=== PATIENT | female | born 1965 | race Caucasian/White ===

== ENCOUNTER 2017-09-16 06:04 | Day surgery (SDC) | payer BC ==
[~2017-09-16 06:04] MED LIST: Lactated Ringers 1,000 ML IV SCH
[2017-09-16] MEDS ORDERED: DIPRIVAN 200 MG/20 ML IV ONE (06:05)
[2017-09-16] MEDS ORDERED: Ketamine HCl 50 MG/ML IJ ONE (06:05)
[2017-09-16] MEDS ORDERED: Lactated Ringers 1,000 ML IV ONE (06:08)
[2017-09-16 07:55] VITALS: PULSE 78
[2017-09-16 08:13] VITALS: BP 119/82; O2SAT 100
--- NOTE | 2017-09-16 14:33 | OP ---
SURGERY DATE/TIME: 09/16/2017 0658 PREOPERATIVE DIAGNOSIS: Screening exam. POSTOPERATIVE DIAGNOSIS: Normal colon. PROCEDURE: Colonoscopy. SURGEON: Dr. Mccoy. ANESTHESIA: MAC. Medications given by anesthesia department. HISTORY: The patient is a 51 year-old white female presenting now for her first screening colonoscopy. She was appraised of the risks of the procedure including the risk of perforation, phlebitis, untoward reaction to medication, bleeding and missed lesions. The patient verbalized her understanding and desired to have the procedure performed. DESCRIPTION OF PROCEDURE: The patient was given the medications by the anesthesia department. She had continuous pulse oximetry, ECG monitoring, intermittent blood pressure monitoring and tidal CO2 monitoring during the examination. She was placed in the left lateral decubitus position. A digital rectal examination was performed and revealed normal anal sphincter tone and no masses. External hemorrhoids were present. The flexible Olympus pediatric colonoscope was used to intubate the rectum. A view of the colon was developed sequentially to the cecum. Upon insertion and withdrawal, including a retroflex view in the rectum, no mucosal lesions being encountered. The scope was removed from the patient who tolerated the procedure well and was sent back to OP recovery in good condition. The prep was noted to be fair to good.
== END 2017-09-16 08:24 | disposition home or self-care (01) ==
LOC: SDC 06:04
PROVIDERS: ATTEND Family Medicine
PROC: 0DJD8ZZ Inspection of Lower Intestinal Tract, Via Natural or Artificial Opening Endoscopic (ICD-10-PCS; principal; 2017-09-16)
DX: Z12.11 Encounter for screening for malignant neoplasm of colon (principal)
CPT/HCPCS: J2704

== ENCOUNTER 2019-12-18 19:01 | Emergency (ER) | payer BC ==
[2019-12-18] MEDS ORDERED: Sodium Chloride 0.9% 1000 ML 1,000 ML IV STA ×2 (19:21→19:36)
[2019-12-18 19:36] LABS: Absolute Neutrophil Ct (ANC) 4.48 (1.4-6.9); BASOPHIL % 0.5 % (0.0-0.4); Basophil (Absolute #) 0.04 (0-0.4); Eosinophil % 1.4 % (0.00-5.0); Hematocrit 39.1 % (35-47); Hemoglobin 12.8 gm/dl (12.0-16.0); Lymphocyte (Absolute #) 2.06 (1.0-4.6); Lymphocytes % 28.3 % (24.0-44.0); Mean Cell Volume 93.3 fl (78-100); Mean Corpuscular Hemoglobin 30.5 pg (26-32); Mean Corpuscular Hgb Concent. 32.7 g/dl (32-36); Mean Platelet Volume 10.6 fl (7.5-11.0); Monocyte (Absolute #) 0.61 (0.0-1.3); Monocytes % 8.4 % (0.0-12.0); Neutrophil % 61.4 % (36.0-66.0); Platelet Count 306 K/mm3 (150-450); Red Blood Count 4.19 M/mm3 (4.1-5.4); Red Cell Distribution Width 12.8 % (11.5-14.0); White Blood Count 7.3 K/mm3 (4.0-10.5)
[2019-12-18 19:43] LABS: INR 0.96 (0.8-3.0); PROTIME 10.8 SECONDS (9.95-12.35)
[2019-12-18 19:56] LABS: ALBUMIN 4.2 g/dL (3.5-5.0); ANION GAP 11.6 MEQ/L (5-15); BILIRUBIN,TOTAL 0.4 mg/dL (0.2-1.3); Calcium 9.3 mg/dL (8.4-10.2); Creatinine 1 1.08 mg/dL (0.52-1.04); MAGNESIUM 2.4 mg/dL (1.6-2.3); NT PRO BNP 95.9 pg/mL (0-900); Potassium 3.6 mmol/L (3.5-5.1); Total Protein 7.6 g/dL (6.3-8.2)
--- NOTE | 2019-12-18 20:21 | ERPHSYRPT ---
- History of Present Illness Time Seen by Provider: 12/18/19 19:20 Source: patient Exam Limitations: no limitations Patient Subjective Stated Complaint: syncople episode Triage Nursing Assessment: pt to ED c/o syncople episode at 1830 this evening. pt was hiking stairs, felt dizzy, sat down then passed out for apprx 15 seconds. pt then vomited when waking up. pt donated blood this afternoon 1300. A&Ox4. lung sounds clear and equal bilaterally, heart sounds clear. pt is diaphoretic and skin cool. pulses 2+. pt to room via WC and 1 assist to bed. pt feeling weak. Physician History: Patient is a 54-year-old female who approximately 1:00 this afternoon gave blood she then couple hours later went on a hike with her family apparently got quite warm and had a syncopal episode along with some nausea vomiting and brief loss of consciousness. On arrival she denies any pain she is feeling somewhat better upon arrival. Witnessed: by family Prior Episodes: single episode today, no prior history Timing/Duration: today Precipitating Factors: lightheadedness, nausea, other (Recent blood donation) Context: activity Loss of Consciousness: brief (seconds) Charcter of event(s): felt faint Allergies/Adverse Reactions: No Known Drug Allergies Allergy (Verified 12/18/19 19:20) Home Medications: No Reportable Medications [No Reported Medications] 09/11/17 [History] Hx Tetanus, Diphtheria Vaccination/Date Given: Yes Hx Influenza Vaccination/Date Given: Yes Hx Pneumococcal Vaccination/Date Given: No Travel Risk - International Travel Have you traveled outside of the country in past 3 weeks: No - Coronavirus Screening Close contact with a COVID-19 positive Pt in past 14-21 Days: No - Past Medical History Pertinent Past Medical History: Yes Neurological History: No Pertinent History ENT History: No Pertinent History Cardiac History: No Pertinent History Respiratory History: No Pertinent History Endocrine Medical History: No Pertinent History Musculoskeletal History: No Pertinent History GI Medical History: No Pertinent History History: Other Psycho-Social History: No Pertinent History Female Reproductive Disorders: Other Other Medical History: ovarian cyst, kidney stones - Past Surgical History Past Surgical History: Yes Neuro Surgical History: No Pertinent History Cardiac: No Pertinent History Respiratory: No Pertinent History Gastrointestinal: No Pertinent History Genitourinary: No Pertinent History Musculoskeletal: No Pertinent History Female Surgical History: Section, Other Other Surgical History: ovary and ovarian cyst removed, 2 csec - Social History Smoking Status: Never smoker Exposure to second hand smoke: No Drug Use: none Patient Lives Alone: No - Female History Hx Now: No - Review of Systems Constitutional: No Fever, No Chills Eyes: No Symptoms Ears, Nose, & Throat: No Symptoms Respiratory: No Cough, No Dyspnea Cardiac: Syncope, No Chest Pain, No Edema Abdominal/Gastrointestinal: No Abdominal Pain, No Nausea, No Vomiting, No Diarrhea Genitourinary Symptoms: No Dysuria Musculoskeletal: No Back Pain, No Neck Pain Skin: No Rash Neurological: Dizziness, Other (Syncope), No Focal Weakness, No Sensory Changes Psychological: No Symptoms Endocrine: No Symptoms All Other Systems: Reviewed and Negative Physical Exam - Nursing Vital Signs Nursing Vital Signs: Initial Vital Signs Temperature 98.1 F 12/18/19 19:07 Pulse Rate 83 12/18/19 19:07 Respiratory Rate 16 12/18/19 19:07 Blood Pressure 120/83 12/18/19 19:07 O2 Sat by Pulse Oximetry 95 12/18/19 19:07 Pain Scale Pain Intensity 0 - Wendy Coma Scale Best Eye Response ([place]): (4) open spontaneously Best Verbal Response (Wendy): (5) oriented Best Motor Response (Wendy): (6) obeys commands Wendy Total: 15 - Physical Exam General Appearance: no apparent distress, alert Eye Exam: bilateral eye: PERRL, EOMI Ears, Nose, Throat Exam: normal ENT inspection, pharynx normal, moist mucous membranes Neck Exam: normal inspection, non-tender, supple, full range of motion Respiratory: normal breath sounds, lungs clear, No chest tenderness, No respiratory distress Cardiovascular: regular rate/rhythm, capillary refill <2 sec, No murmur, No pulse deficit Gastrointestinal: soft, No tenderness, No distention, No mass Back Exam: normal inspection, normal range of motion, No CVA tenderness, No vertebral tenderness Extremity Exam: normal inspection, normal range of motion, pelvis stable, No tenderness Mental Status: alert, oriented x 3, 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 Exam: normal speech, PERRL, No facial droop Coordination/Gait: normal finger to nose Motor/Sensory: no motor deficit, no sensory deficit, no pronator drift Skin Exam: normal color, warm, dry, No rash SpO2: 95 - Course Nursing assessment & vital signs reviewed: Yes EKG Interpreted by Me: RATE (81), Sinus Rhythm, NORMAL AXIS, NORMAL INTERVALS, NORMAL ST-T - Radiology Exams Chest X-ray Interpretation: Interpreted by me, Negative Ordered Tests: Active Orders 24 hr Category Date Time Status EKG-ER Only STAT Care 12/18/19 19:21 Active IV Insertion STAT Care 12/18/19 19:21 Active Orthostatic Vital Signs STAT Care 12/18/19 19:24 Active CHEST 1 VIEW (PORTABLE) Stat Exams 12/18/19 19:22 Completed AMYLASE Stat Lab 12/18/19 19:20 Completed CBC W DIFF Stat Lab 12/18/19 19:20 Completed CK-Creatinine Phosphokinase Stat Lab 12/18/19 19:20 Completed CMP Stat Lab 12/18/19 19:20 Completed D-DIMER QUANTITATIVE Stat Lab 12/18/19 19:20 Completed LIPASE Stat Lab 12/18/19 19:20 Completed Lactic Acid Stat Lab 12/18/19 19:21 Completed MAGNESIUM Stat Lab 12/18/19 19:20 Completed NT PRO BNP Stat Lab 12/18/19 19:20 Completed PROTIME WITH INR Stat Lab 12/18/19 19:20 Completed TROPONIN Q3H Lab 12/18/19 19:20 Completed TROPONIN Q3H Lab 12/18/19 22:30 Ordered TROPONIN Q3H Lab 12/19/19 01:30 Ordered TROPONIN Q3H Lab 12/19/19 04:30 Ordered TROPONIN Q3H Lab 12/19/19 07:30 Ordered UA W/RFX UR CULTURE Stat Lab 12/18/19 21:42 Received Medication Summary Discontinued Medications Generic Name Dose Route Start Last Admin Trade Name Freq PRN Reason Stop Dose Admin Sodium Chloride 1,000 mls @ 999 mls/hr 12/18/19 19:21 12/18/19 21:49 Sodium Chloride 0.9% 1000 Ml IV 12/18/19 20:21 Infused .Q1H1M STA Infusion Sodium Chloride 1,000 mls @ 999 mls/hr 12/18/19 19:36 12/18/19 21:49 Sodium Chloride 0.9% 1000 Ml IV 12/18/19 20:36 Infused .Q1H1M STA Infusion Sodium Chloride Confirm 12/18/19 20:22 Sodium Chloride 0.9% 1000 Ml Administered 12/18/19 20:23 Dose 2,000 mls @ ud .ROUTE .STK-MED ONE Lab/Rad Data: Laboratory Result Diagrams 12/18/19 19:20 12/18/19 19:20 Laboratory Results 12/18/19 12/18/19 12/18/19 Range/Units 19:21 19:20 19:20 WBC (4.0-10.5) K/mm3 RBC (4.1-5.4) M/mm3 Hgb (12.0-16.0) gm/dl Hct (35-47) % MCV (78-100) fl MCH (26-32) pg MCHC (32-36) g/dl RDW (11.5-14.0) % Plt Count (150-450) K/mm3 MPV (7.5-11.0) fl Gran % (36.0-66.0) % Eos # (Auto) (0-0.5) Absolute Lymphs (auto) (1.0-4.6) Absolute Monos (auto) (0.0-1.3) Lymphocytes % (24.0-44.0) % Monocytes % (0.0-12.0) % Eosinophils % (0.00-5.0) % Basophils % (0.0-0.4) % Absolute Granulocytes (1.4-6.9) Basophils # (0-0.4) PT 10.8 (9.95-12.35) SECONDS INR 0.96 (0.8-3.0) D-Dimer 404 (215-500) ng/mL Sodium (137-145) mmol/L Potassium (3.5-5.1) mmol/L Chloride (98-107) mmol/L Carbon Dioxide (22-30) mmol/L Anion Gap (5-15) MEQ/L BUN (7-17) mg/dL Creatinine (0.52-1.04) mg/dL Estimated GFR ML/MIN Glucose (74-106) mg/dL Lactic Acid 2.7 H (0.4-2.0) Calcium (8.4-10.2) mg/dL Magnesium (1.6-2.3) mg/dL Total Bilirubin (0.2-1.3) mg/dL AST (14-36) U/L ALT (0-35) U/L Alkaline Phosphatase (38-126) U/L Creatine Kinase (30-135) U/L Troponin I < 0.012 (0.000-0.034) ng/mL NT-Pro-B Natriuret Pep (0-900) pg/mL Serum Total Protein (6.3-8.2) g/dL Albumin (3.5-5.0) g/dL Amylase (30-110) U/L Lipase (23-300) U/L 12/18/19 12/18/19 Range/Units 19:20 19:20 WBC 7.3 (4.0-10.5) K/mm3 RBC 4.19 (4.1-5.4) M/mm3 Hgb 12.8 (12.0-16.0) gm/dl Hct 39.1 (35-47) % MCV 93.3 (78-100) fl MCH 30.5 (26-32) pg MCHC 32.7 (32-36) g/dl RDW 12.8 (11.5-14.0) % Plt Count 306 (150-450) K/mm3 MPV 10.6 (7.5-11.0) fl Gran % 61.4 (36.0-66.0) % Eos # (Auto) 0.10 (0-0.5) Absolute Lymphs (auto) 2.06 (1.0-4.6) Absolute Monos (auto) 0.61 (0.0-1.3) Lymphocytes % 28.3 (24.0-44.0) % Monocytes % 8.4 (0.0-12.0) % Eosinophils % 1.4 (0.00-5.0) % Basophils % 0.5 (0.0-0.4) % Absolute Granulocytes 4.48 (1.4-6.9) Basophils # 0.04 (0-0.4) PT (9.95-12.35) SECONDS INR (0.8-3.0) D-Dimer (215-500) ng/mL Sodium 141 (137-145) mmol/L Potassium 3.6 (3.5-5.1) mmol/L Chloride 107 (98-107) mmol/L Carbon Dioxide 26 (22-30) mmol/L Anion Gap 11.6 (5-15) MEQ/L BUN 17 (7-17) mg/dL Creatinine 1.08 H (0.52-1.04) mg/dL Estimated GFR 56.2 ML/MIN Glucose 96 (74-106) mg/dL Lactic Acid (0.4-2.0) Calcium 9.3 (8.4-10.2) mg/dL Magnesium 2.4 H (1.6-2.3) mg/dL Total Bilirubin 0.40 (0.2-1.3) mg/dL AST 39 H (14-36) U/L ALT 31 (0-35) U/L Alkaline Phosphatase 105 (38-126) U/L Creatine Kinase 92 (30-135) U/L Troponin I (0.000-0.034) ng/mL NT-Pro-B Natriuret Pep 95.9 (0-900) pg/mL Serum Total Protein 7.6 (6.3-8.2) g/dL Albumin 4.2 (3.5-5.0) g/dL Amylase 107 (30-110) U/L Lipase 149 (23-300) U/L - Progress Progress: improved - Departure Departure Disposition: Home Clinical Impression: Syncope Condition: Stable Critical Care Time: No Referrals: YOAV FIGUEROA NP [Primary Care Provider] - Instructions: Syncope (Fainting) (DC)
[2019-12-18] MEDS ORDERED: Sodium Chloride 0.9% 1000 ML 2,000 ML ONE (20:22)
--- NOTE | 2019-12-18 21:32 | XRAY ---
Indication: Syncope. Comparison: None Portable chest demonstrates normal heart, lungs, and bony thorax.
[2019-12-18 21:52] LABS: Appearance CLEAR (CLEAR); Bacteria FEW /HPF (NEGATIVE); Bilirubin NEGATIVE (NEGATIVE); Blood NEGATIVE Ery/ul (0-5); Epithelial Cells RARE /HPF (FEW); Glucose NEGATIVE (NEGATIVE); Hyaline Casts 0-2 /LPF (0-2); Ketones NEGATIVE (NEGATIVE); Leukocyte Esterase NEGATIVE (NEGATIVE); Mucus SLIGHT /HPF (NEGATIVE); Nitrite NEGATIVE (NEGATIVE); Protein,Urine Dip NEGATIVE (Negative); Urobilinogen NEGATIVE mg/dL (0-1)
[2019-12-18 22:08] VITALS: BP 137/84; PULSE 91; O2SAT 99
== END 2019-12-18 22:06 | disposition home or self-care (01) ==
LOC: ED 19:01
DX: R55 Syncope and collapse (principal)
CPT/HCPCS: 36000; 36415; 71045; 80053; 81001; 82150; 82550; 83605; 83690; 83735; 83880; 84484; 85025; 85379; 85610; 93005; 96360; 96374; 99284

== ENCOUNTER 2022-06-13 10:34 | Day surgery (SDC) | payer BC ==
[2022-06-13] MEDS ORDERED: Sodium Chloride 0.9(Preservative Free) 10 ML IJ ONE (10:35)
[2022-06-13] MEDS ORDERED: Depo-Medrol 40 MG/ML IM ONE (10:35)
[2022-06-13] MEDS ORDERED: DIPRIVAN 200 MG/20 ML IV ONE (12:18)
[2022-06-13] MEDS ORDERED: Lactated Ringers 1,000 ML IV ONE (13:00)
--- NOTE | 2022-06-13 14:47 | XRAY ---
Indication: Right L4-S1 transforaminal JEET. Intraoperative fluoroscopy provided for 35 seconds. 5 digital spot image submitted for interpretation demonstrates posterior needle tips projecting over the expected right L4 and L5 nerve roots. Small amount of contrast injected for needle tip basement. Correlate with intraoperative findings/report.
--- NOTE | 2022-06-13 14:49 | XRAY ---
35 seconds of fluoroscopy was used in surgery for a right L4-S1 transforaminal JEET.
== END 2022-06-13 12:40 | disposition home or self-care (01) ==
LOC: SDC-PAIN 10:34
PROVIDERS: ATTEND Psychiatry & Neurology Pain Medicine
DX: M54.16 Radiculopathy, lumbar region (principal); Z79.899 Other long term (current) drug therapy
CPT/HCPCS: 64483; 64484; 72100; 77003; 82947; J1030; J2704; Q9966

== ENCOUNTER 2022-08-15 13:40 | Day surgery (SDC) | payer BC ==
[2022-08-15] MEDS ORDERED: Depo-Medrol 40 MG/ML IM ONE (13:41)
[2022-08-15] MEDS ORDERED: BUPIVACAINE 0.5% VIAL IJ ONE (13:41)
[2022-08-15] MEDS ORDERED: Decadron 4 MG INJ IV ONE (13:41)
[2022-08-15] MEDS ORDERED: LIDOCAINE HCL 1% 50 MG/5 ML VL PF IJ ONE (13:41)
[2022-08-15] MEDS ORDERED: DIPRIVAN 200 MG/20 ML IV ONE (16:14)
[2022-08-15] MEDS ORDERED: Lactated Ringers 1,000 ML IV ONE (16:35)
--- NOTE | 2022-08-15 20:24 | XRAY ---
Indication: Left SI joint and right piriformis injection. Intraoperative fluoroscopy provided for 19 seconds. 3 digital spot image obtained prone submitted for interpretation demonstrates posterior needle tip projecting over the left SI joint. Second needle tip projects over the right piriformis muscle with small amount of contrast injected for needle tip placement. Correlate with intraoperative findings/report.
--- NOTE | 2022-08-16 09:12 | XRAY ---
19 seconds of fluoroscopy was used in surgery for a left sacroiliac joint and right piriformis injection.
== END 2022-08-15 16:40 | disposition home or self-care (01) ==
LOC: SDC-PAIN 13:40
PROVIDERS: ATTEND Psychiatry & Neurology Pain Medicine
DX: M46.1 Sacroiliitis, not elsewhere classified (principal); M79.18 Myalgia, other site; Z79.899 Other long term (current) drug therapy
CPT/HCPCS: 20552; 27096; 72170; 77002; J1030; J1100; J2001; J2704; Q9966; G0260